=== PATIENT | female | born 1965 | race Caucasian/White ===

== ENCOUNTER 2016-09-28 11:18 | Emergency (ER) | payer OTHER ==
[~2016-09-28] VITALS: Ht 162.6 cm; Wt 56.3 kg
[~2016-09-28 11:18] MED LIST: AMOXICILLIN875 MG PO; ANTIVERT25 MG PO; AZITHROMYCIN250 MG PO; BACTRIM,SEPT1 TABLET PO; BUSPAR5 MG PO; COLACE100 MG PO; FLEXERIL10 MG PO; GUAIFENESIN WI120 M1 PO; HYCODAN SYRUP480 ML PO; HYDROCORTISONE30 G2 TP; IMITREX25 MG PO; KEFLEX500 MG PO; MEDROL DOSEPAK4 MG PO; MOBIC15 MG PO; MOTRIN600 MG PO; MOTRIN800 MG PO; NAPROSYN500 MG PO; NICOTINE PATCH1 EAC2 TD; NORCO 5/3251 TABLET PO; PAXIL40 MG PO; PRAVACHOL20 MG PO; PREDNISONE10 MG PO; PREDNISONE20 MG PO; PREDNISONE50 MG PO; PROCTOSOL-HC28.35 GM PR; TAMIFLU75 MG PO; TOPAMAX25 MG PO; TOPROL XL6.25 MG PO; ULTRAM50 MG PO; VENTOLIN HFA18 GM IH; VICODIN HP 11 TABLET PO; VOLTAREN75 MG PO; ZITHROMAX Z-PA250 MG PO; ZITHROMAX500 MG PO; ZOFRAN ODT4 MG PO
[2016-09-28 11:47] LABS: HEMATOCRIT 42.9 % (36.0-46.0); MCV 88.1 FL (83-99); MEAN PLAT.VOLUME 9.6 uM^3 (9.5-12.4); PLATELET COUNT 278 K/uL (156-360); RBC DIS.WIDTH-CV 12.9 % (11.8-14.6); RBC DIS.WIDTH-SD 41.6 % (39-53); RED BLOOD COUNT 4.87 M/uL (3.80-5.20)
[2016-09-28 11:57] LABS: CHLORIDE 110 mEq/L (99-109); SODIUM 138 mEq/L (136-147)
[2016-09-28 11:59] LABS: GLUCOSE 110 mg/dL (70-99)
[2016-09-28 12:00] LABS: ANION GAP 11 MEQ/L (2-14)
[2016-09-28 12:03] LABS: GFR ESTIMATE (CALCULATED) > 59 mL/min/
[2016-09-28 12:04] LABS: UREA NITROGEN (BUN) 10 mg/dL (9-23)
[2016-09-28 12:10] LABS: TROP-I INTERPRETATION NEGATIVE; TROPONIN-I < 0.01 ng/mL (0.0-0.30)
[2016-09-28] MEDS ORDERED: ANTIVERT25 MG PO (12:52)
[2016-09-28] MEDS ORDERED: ZOFRAN ODT4 MG PO (12:58)
[2016-09-28 13:49] VITALS: BP 144/80
== END 2016-09-28 13:50 | disposition home or self-care (01) ==
LOC: EME 11:18
PROVIDERS: Emergency Medicine
DX: R42 Dizziness and giddiness (principal); R11.0 Nausea; R53.1 Weakness; R55 Syncope and collapse; F17.200 Nicotine dependence, unspecified, uncomplicated
CPT/HCPCS: 70450; 80048; 84484; 85027; 93005; J2405; J7030

== ENCOUNTER 2017-01-20 06:31 | Day surgery (SDC) | payer OTHER ==
[~2017-01-20] VITALS: Ht 162.6 cm; Wt 86.2 kg
[~2017-01-20 06:31] MED LIST changes: +ATIVAN1 MG PO; +BUTISOL SODIUM30 MG PO; +PRAVACHOL10 MG PO; +PROZAC10 MG PO; +TYLENOL WITH C1 EACH PO
[2017-01-20 07:05] VITALS: BP 139/71
[2017-01-20] MEDS ORDERED: IBUPROFEN800 MG PO (11:28)
[2017-01-20] MEDS ORDERED: ENDOCET 5-3251 EACH PO (11:29)
[2017-01-20 14:13] VITALS: BP 107/64
[2017-01-20 15:10] VITALS: BP 126/65
[2017-01-20 15:47] VITALS: BP 108/66
== END 2017-01-20 16:09 | disposition home or self-care (01) ==
LOC: SDC 06:31
DX: N92.0 Excessive and frequent menstruation with regular cycle (principal); D25.9 Leiomyoma of uterus, unspecified; N80.0 Endometriosis of uterus; N72 Inflammatory disease of cervix uteri; N75.0 Cyst of Bartholin's gland; N94.6 Dysmenorrhea, unspecified; N94.10 Unspecified dyspareunia; N99.4 Postprocedural pelvic peritoneal adhesions; F17.210 Nicotine dependence, cigarettes, uncomplicated
CPT/HCPCS: 87070; 87075; 87205; 88305; 88307; J0690; J1100; J1170; J1885; J2001; J2795; J3010; J3475; Q0175